=== PATIENT | male | born 1935 | race Caucasian/White ===

== ENCOUNTER → 2020-07-27 | Outpatient (CLI) | payer MEDICARE, OTHER ==
[~2020-07-27] VITALS: Ht 167.6 cm; Wt 68.2 kg
[~2020-07-27] MED LIST: ASPI81TA45 PO; MAGN400C PO; METO50TA82 PO; SIMV40TA20 PO; WHEA1POW5 PO
[2020-07-27 15:40] LABS: CHLORIDE 108 mmol/L (98-107)
[2020-07-27 15:48] LABS: BASOPHILS % (AUTO) 1 % (0-1); EOSINOPHILS % (AUTO) 2 % (1-7); LYMPHOCYTES % (AUTO) 24 % (22-44); MD NO; MEAN CORPUSCULAR HEMOGLOBIN 31.1 pg (27.5-34.5); MEAN CORPUSCULAR HGB CONC 33.4 g/dL (33.2-36.2); MEAN PLATELET VOLUME 8.8 fL (7.4-10.4); MONOCYTES % (AUTO) 13 % (2-9); NEUTROPHILS % (AUTO) 60 % (42-75); PLATELET COUNT 191 x10^3/uL (130-400); RED BLOOD COUNT 4.38 x10^6/uL (4.38-5.82); RED CELL DISTRIBUTION WIDTH 13.3 % (9.4-14.8)
[2020-07-27 15:49] LABS: ALANINE AMINOTRANSFERASE 24 U/L (12-78); ALBUMIN 3.5 g/dL (3.4-5.0); ALKALINE PHOSPHATASE 43 U/L (45-117); ANION GAP 5 mmol/L (5-15); BILIRUBIN,TOTAL 0.5 mg/dL (0.2-1.0); CALCIUM 9.1 mg/dL (8.5-10.1); CREATININE 1.27 mg/dL (0.7-1.3); TOTAL PROTEIN 6.6 g/dL (6.4-8.2)
== END | disposition home or self-care (01) ==
LOC: STAR 08:00 → EDSTATUS 07-30 10:00
PROVIDERS: ATTEND Surgery
DX: Z01.818 Encounter for other preprocedural examination (principal); Z20.828 Contact with and (suspected) exposure to other viral communicable diseases; I65.21 Occlusion and stenosis of right carotid artery
CPT/HCPCS: 36415; 80053; 85025; 87635; 93005

== ENCOUNTER 2020-08-10 09:30 | Inpatient (IN) | payer MEDICARE, OTHER ==
[~2020-08-10] VITALS: Ht 167.6 cm; Wt 79.3 kg
[~2020-08-10 09:30] MED LIST changes: +BUPIVACAINE/PF 0.5% ONE; +EPINEPHRINE 1 MG/ML, 1ML ONE; +HEPARIN 1,000 UNITS/ML, 10ML ONE; +LIDOCAINE 1%, 20ML ONE; +PAPAVERINE 30 MG/ML, 2ML ONE; +PROTAMINE SULFATE 10 MG/ML, 5ML ONE
[2020-08-10 12:29] VITALS: BP 149/83
[2020-08-10] MEDS ORDERED: LACTATED RINGERS 1,000 ML IV SCH (12:30)
[2020-08-10] MEDS ORDERED: PLEASE ENTER HEIGHT AND WEIGHT MC SCH (12:30)
[2020-08-10] MEDS ORDERED: CHLORHEXIDINE 15 ML UDC MM ONE (12:30)
[2020-08-10] MEDS ORDERED: FLU VACC QS2020-21(6MOS UP)/PF 60MCG/0.5 ML SYR IM-VACC ONE (13:00)
[2020-08-10] MEDS ORDERED: FENTANYL PF 100 MCG/2ML ONE ×2 (13:43)
[2020-08-10] MEDS ORDERED: ONDANSETRON 2MG/ML, 2ML ONE (14:25)
[2020-08-10] MEDS ORDERED: DEXAMETHASONE 4 MG/ML, 5ML ONE (14:25)
[2020-08-10] MEDS ORDERED: ROCURONIUM 10MG/ML,5ML ONE (14:25)
[2020-08-10] MEDS ORDERED: EPHEDRINE 50 MG/ML, 1ML ONE (14:25)
[2020-08-10] MEDS ORDERED: METOPROLOL 1 MG/ML, 5ML IV PRN (14:30)
[2020-08-10] MEDS ORDERED: hydrALAzine 20 MG/ML, 1ML IV PRN (14:30)
[2020-08-10] MEDS ORDERED: LABETALOL 5MG/ML, 20ML IV PRN (14:30)
[2020-08-10] MEDS ORDERED: HYDROmorphone 1 MG/ML, 1ML INJ IVPush PRN (14:30)
[2020-08-10] MEDS ORDERED: MEPERIDINE/PF 25MG/0.5ML IVPush PRN (14:30)
[2020-08-10] MEDS ORDERED: HYDROcodone/APAP 7.5-325MG/15ML UDC PO PRN (14:30)
[2020-08-10] MEDS ORDERED: FENTANYL PF 100 MCG/2ML IV PRN (14:30)
[2020-08-10] MEDS ORDERED: OXYcodone 5 MG/5 ML ORAL.SOL UDC PO PRN (14:30)
[2020-08-10] MEDS ORDERED: ONDANSETRON 2MG/ML, 2ML IVPush PRN (14:30)
[2020-08-10] MEDS ORDERED: morphine SULFATE 10 MG/ML, 1ML IVPush PRN (14:30)
[2020-08-10] MEDS ORDERED: ACETAMINOPHEN 325 MG TABLET PO PRN (14:30)
[2020-08-10] MEDS ORDERED: NEOSTIGMINE 1 MG/ML, 10ML ONE (14:52)
[2020-08-10] MEDS ORDERED: CEFAZOLIN 1,000 MG ONE (14:52)
[2020-08-10] MEDS ORDERED: GLYCOPYRROLATE 0.2MG/1ML, 5ML ONE (14:52)
[2020-08-10] MEDS ORDERED: PROPOFOL 10 MG/ML, 20ML ONE (14:52)
[2020-08-10] MEDS ORDERED: ACETAMINOPHEN 650 MG/20.3 ML UDC ONE (17:42)
[2020-08-10] MEDS ORDERED: OXYcodone 5 MG/5 ML ORAL.SOL UDC ONE (17:42)
[2020-08-10] MEDS: LACTATED RINGERS 1,000 ML IV SCH (19:30)
[2020-08-10] MEDS ORDERED: HYDROmorphone 2 MG/ML, 1ML IV PRN (19:30)
[2020-08-10] MEDS ORDERED: BENEFIBER PO PRN (19:30)
[2020-08-10] MEDS ORDERED: HYDROcodone/APAP 5/325 TABLET PO PRN (19:30)
[2020-08-10 20:48] VITALS: BP 120/53
[2020-08-10] MEDS: SODIUM CHLORIDE FLUSH 10ML SYR IVF SCH (21:00)
[2020-08-10] MEDS ORDERED: SIMVASTATIN 40 MG TABLET PO SCH (21:00)
[2020-08-10 23:33] VITALS: BP 119/60
[2020-08-11 02:56] VITALS: BP 97/59
[2020-08-11] MEDS ORDERED: METOPROLOL TARTRATE 25 MG TAB PO SCH ×2 (06:00→09:00)
[2020-08-11] MEDS ORDERED: HEPARIN 5,000 UNITS/ML, 1ML SQ SCH (06:00)
[2020-08-11] MEDS ORDERED: ASPIRIN 81 MG TABLET EC PO SCH ×2 (06:00→09:00)
[2020-08-11 06:57] VITALS: BP 125/63
[2020-08-11] MEDS ORDERED: METO50TA82 PO (07:43)
[2020-08-11] MEDS ORDERED: PANTOPRAZOLE 40MG TABLET PO SCH (09:00)
[2020-08-11] MEDS ORDERED: MAGNESIUM OXIDE 400 MG TABLET PO SCH (09:00)
[2020-08-11] MEDS ORDERED: CALCIUM CARBONATE 500 MG TAB.CHEW PO PRN (09:00)
[2020-08-11] MEDS: SODIUM CHLORIDE FLUSH 10ML SYR IVF SCH (09:20)
[2020-08-11] MEDS: LACTATED RINGERS 1,000 ML IV SCH (12:17)
[2020-08-11 13:10] VITALS: BP 120/54
[2020-08-11] MEDS ORDERED: SIMVASTATIN 40 MG TABLET PO SCH (21:00)
== END 2020-08-11 14:41 | disposition home or self-care (01) | DRG 39 ==
LOC: ORIP 11:46 → 4NE 18:52 → DCLOUNGE 08-11 14:25
PROVIDERS: ADMIT Surgery; ATTEND Surgery
PROC: 03UK0KZ Supplement Right Internal Carotid Artery with Nonautologous Tissue Substitute, Open Approach (ICD-10-PCS; 2020-08-10)
PROC: 03CK0ZZ Extirpation of Matter from Right Internal Carotid Artery, Open Approach (ICD-10-PCS; principal; 2020-08-10 09:30)
DX: I65.21 Occlusion and stenosis of right carotid artery (principal); H54.40 Blindness, one eye, unspecified eye; Z23 Encounter for immunization; Z20.828 Contact with and (suspected) exposure to other viral communicable diseases
CPT/HCPCS: 36415; 85347; 86850; 86900; 87635; 88305; 88311; 90686; G0378; J0171; J0690; J1100; J1644; J2405; J2704; J2710; J2720; J3010; C1768; J2440; J7120